=== PATIENT | male | born 1945 | race American Indian/Alaskan Native ===

== ENCOUNTER 2016-08-09 12:46 | Emergency (ER) | payer MEDICARE ==
[2016-08-09 13:19] LABS: Basophils % (Auto) 0.6 % (0.0-1.8); Eosinophils % (Auto) 5.4 % (0.0-4.3); Hematocrit 38.7 % (35.5-45.6); Hemoglobin 12.8 gm/dl (11.8-15.2); Mean Corpuscular HGB Conc 33 % (32-34); Mean Corpuscular Hemoglobin 27 pg (28-32); Mean Corpuscular Volume 82 fl (84-94); Platelet Count 235 K/mm3 (140-440); Red Blood Count 4.73 M/mm3 (3.65-5.03); Red Cell Distribution Width 15.5 % (13.2-15.2); White Blood Count 5.5 K/mm3 (4.5-11.0)
[2016-08-09 13:39] LABS: Anion Gap 22 mmol/L; BUN/Creatinine Ratio 13.33; Blood Urea Nitrogen 12 mg/dL (9-20); Calcium 9.6 mg/dL (8.4-10.2); Carbon Dioxide 22 mmol/L (22-30); Chloride 101.3 mmol/L (98-107); Glucose 159 mg/dL (75-100); Potassium 4.2 mmol/L (3.6-5.0); Sodium 141 mmol/L (137-145)
[2016-08-09] MEDS ORDERED: NACL 0.9% IR ONE (18:03)
--- NOTE | 2016-08-09 18:04 | Emergency Department Report ---
ED Male HPI - General Chief complaint: Urogenital-Male Stated complaint: PENILE BLEEDING Time Seen by Provider: 08/09/16 18:02 Source: patient, RN notes reviewed Mode of arrival: Ambulatory Limitations: No Limitations - History of Present Illness Initial comments: This is a 70-year-old male. He is previously unknown to me. His primary care doctor is Dr. Agapito Joe. His urologist is Dr. Juarez with [facility]. Past medical history includes GERD, hypertension, possible prostate cancer (the patient is not certain). the patient thinks he had a transurethral retrograde prostatectomy, but is not certain. The patient presents to the ER today with hematuria, and inability to urinate. He woke up with these symptoms. They are constant. They were relieved with placement of Gomes catheter. Currently, patient denies headache, neck pain, chest pain, abdominal pain or shortness of breath. He denies dysuria, and pain with urination. There is no testicular pain. MD Complaint: other (hematuria, urinary obstruction) -: Gradual Consistency: now resolved Improves with: other (gomes catheter placement) urinary retention, blood in urine. denies: discharge, swelling, mass, rash, fever, nausea/vomiting, incontinence - Related Data Home Medications Medication Instructions Recorded Confirmed Last Taken Omeprazole Magnesium [PriLOSEC Otc] 20 mg PO QDAY 08/09/16 08/09/16 Unknown diphenhydrAMINE [Benadryl CAP] 25 mg PO QHS PRN 08/09/16 08/09/16 Unknown Previous Rx's Medication Instructions Recorded Last Taken Type Nitrofurantoin [place]/M-Cryst 100 mg PO Q12HR #14 capsule 08/09/16 Unknown Rx [Macrobid CAP] Allergies Allergy/AdvReac Type Severity Reaction Status Date / Time Penicillins AdvReac Hives Verified 08/09/16 12:50 ED Review of Systems ROS: Stated complaint: PENILE BLEEDING Other details as noted in HPI Constitutional: denies: fever Eyes: denies: eye discharge ENT: denies: epistaxis Respiratory: denies: cough Cardiovascular: denies: chest pain Gastrointestinal: abdominal pain (now resolved) Genitourinary: hematuria. denies: testicular pain Musculoskeletal: as per HPI Skin: as per HPI Neurological: as per HPI Psychiatric: as per HPI ED Past Medical Hx - Past Medical History Hx Hypertension: Yes Hx GERD: Yes - Surgical History Past Surgical History?: Yes Additional Surgical History: Prostate 2007 - Medications Home Medications: Home Medications Medication Instructions Recorded Confirmed Last Taken Type Nitrofurantoin [place]/M-Cryst 100 mg PO Q12HR #14 capsule 08/09/16 Unknown Rx [Macrobid CAP] Omeprazole Magnesium [PriLOSEC Otc] 20 mg PO QDAY 08/09/16 08/09/16 Unknown History diphenhydrAMINE [Benadryl CAP] 25 mg PO QHS PRN 08/09/16 08/09/16 Unknown History ED Physical Exam - General Limitations: No Limitations General appearance: alert, in no apparent distress - Head Head exam: Present: atraumatic, normocephalic - Eye Eye exam: Present: normal appearance, EOMI. Absent: nystagmus - ENT ENT exam: Present: normal exam, normal orophraynx, mucous membranes moist, normal external ear exam - Neck Neck exam: Present: normal inspection, full ROM. Absent: tenderness, meningismus - Respiratory Respiratory exam: Present: normal lung sounds bilaterally. Absent: respiratory distress, wheezes, rales, rhonchi, stridor, chest wall tenderness, accessory muscle use, decreased breath sounds, prolonged expiratory - Cardiovascular Cardiovascular Exam: Present: regular rate, normal rhythm, normal heart sounds. Absent: bradycardia, tachycardia, irregular rhythm, systolic murmur, diastolic murmur, rubs, gallop - GI/Abdominal GI/Abdominal exam: Present: soft, normal bowel sounds. Absent: distended, tenderness, guarding, rebound, rigid - Rectal Rectal exam: Present: deferred - exam: Present: normal inspection External exam: Present: normal external exam, other (there is a Gomes catheter in place draining clear/bloody urine. There is no testicular tenderness.) - Extremities Exam Extremities exam: Present: normal inspection, full ROM, normal capillary refill. Absent: tenderness, pedal edema, joint swelling, calf tenderness - Back Exam Back exam: Present: normal inspection, full ROM. Absent: tenderness, CVA tenderness (R), CVA tenderness (L), muscle spasm, paraspinal tenderness, vertebral tenderness - Neurological Exam Neurological exam: Present: alert, oriented X3, other (Extraocular movements intact. Tongue midline. No facial droop. Facial sensation intact to light touch in the V1, V2, V3 distribution bilaterally. 5 and 5 strength in 4 extremities.. Sensation is intact to light touch in 4 extremities.). Absent: motor sensory deficit - Psychiatric Psychiatric exam: Present: normal affect, normal mood - Skin Skin exam: Present: warm, dry, intact, normal color. Absent: rash ED Course Vital Signs 08/09/16 08/09/16 08/09/16 12:50 18:21 18:22 Temperature 98.1 F 99.3 F Pulse Rate 98 H Respiratory 16 18 18 Rate Blood Pressure 158/85 Blood Pressure 158/85 165/81 [Left] O2 Sat by Pulse 100 100 Oximetry 08/09/16 22:08 Temperature 98.3 F Pulse Rate 97 H Respiratory 15 Rate Blood Pressure Blood Pressure 161/98 [Left] O2 Sat by Pulse 99 Oximetry - Reevaluation(s) Reevaluation #1: 08/09/16 19:58 differential diagnosis: Genitourinary malignancy, obstructive uropathy, urinary tract infection Assessment and plan: 70-year-old male with obstructive uropathy, now resolved. He is afebrile with reassuring vital signs, with the exception of slightly elevated blood pressure. He does not have any irritative urinary symptoms, his urinalysis is not consistent with a urinary tract infection, his laboratory studies are essentially unremarkable. The bladder was irrigated with sterile saline, which improved the clarity of the urine. The patient will be changed to a leg bag, and he will be discharged with instructions to follow up with outpatient urology within the next week for trial void. This was explained extensively to both the patient and family who verbalized understanding. Patient will be discharged at this time. Return precautions are reviewed. ED Medical Decision Making - Lab Data Result diagrams: 08/09/16 13:00 08/09/16 13:00 Vital Signs 08/09/16 08/09/16 08/09/16 12:50 18:21 18:22 Temperature 98.1 F 99.3 F Pulse Rate 98 H Respiratory 16 18 18 Rate Blood Pressure 158/85 Blood Pressure 158/85 165/81 [Left] O2 Sat by Pulse 100 100 Oximetry Lab Results 08/09/16 08/09/16 08/09/16 Range/Units 13:00 13:00 13:00 WBC 5.5 (4.5-11.0) K/mm3 RBC 4.73 (3.65-5.03) M/mm3 Hgb 12.8 (11.8-15.2) gm/dl Hct 38.7 (35.5-45.6) % MCV 82 L (84-94) fl MCH 27 L (28-32) pg MCHC 33 (32-34) % RDW 15.5 H (13.2-15.2) % Plt Count 235 (140-440) K/mm3 Lymph % (Auto) 20.5 (13.4-35.0) % [place] % (Auto) 9.3 H (0.0-7.3) % Eos % (Auto) 5.4 H (0.0-4.3) % Baso % (Auto) 0.6 (0.0-1.8) % Lymph # 1.1 L (1.2-5.4) K/mm3 [place] # 0.5 (0.0-0.8) K/mm3 Eos # 0.3 (0.0-0.4) K/mm3 Baso # 0.0 (0.0-0.1) K/mm3 Seg Neutrophils % 64.2 (40.0-70.0) % Seg Neutrophils # 3.5 (1.8-7.7) K/mm3 Sodium 141 (137-145) mmol/L Potassium 4.2 (3.6-5.0) mmol/L Chloride 101.3 (98-107) mmol/L Carbon Dioxide 22 (22-30) mmol/L Anion Gap 22 mmol/L BUN 12 (9-20) mg/dL Creatinine 0.9 (0.8-1.5) mg/dL Estimated GFR > 60 ml/min BUN/Creatinine Ratio 13.33 % Glucose 159 H (75-100) mg/dL Calcium 9.6 (8.4-10.2) mg/dL Total Creatine Kinase 105 (55-170) units/L Urine Color (Yellow) Urine Turbidity (Clear) Urine pH (5.0-7.0) Ur Specific [place] (1.003-1.030) Urine Protein (Negative) mg/dL Urine Glucose (UA) (Negative) mg/dL Urine Ketones (Negative) mg/dL Urine Blood (Negative) Urine Nitrite (Negative) Urine Bilirubin (Negative) Urine Urobilinogen (<2.0) mg/dL Ur Leukocyte Esterase (Negative) Urine WBC (Auto) (0.0-6.0) /HPF Urine RBC (Auto) (0.0-6.0) /HPF Urine Mucus /HPF Urine Yeast (Budding) /HPF 08/09/16 Range/Units 17:59 WBC (4.5-11.0) K/mm3 RBC (3.65-5.03) M/mm3 Hgb (11.8-15.2) gm/dl Hct (35.5-45.6) % MCV (84-94) fl MCH (28-32) pg MCHC (32-34) % RDW (13.2-15.2) % Plt Count (140-440) K/mm3 Lymph % (Auto) (13.4-35.0) % [place] % (Auto) (0.0-7.3) % Eos % (Auto) (0.0-4.3) % Baso % (Auto) (0.0-1.8) % Lymph # (1.2-5.4) K/mm3 [place] # (0.0-0.8) K/mm3 Eos # (0.0-0.4) K/mm3 Baso # (0.0-0.1) K/mm3 Seg Neutrophils % (40.0-70.0) % Seg Neutrophils # (1.8-7.7) K/mm3 Sodium (137-145) mmol/L Potassium (3.6-5.0) mmol/L Chloride (98-107) mmol/L Carbon Dioxide (22-30) mmol/L Anion Gap mmol/L BUN (9-20) mg/dL Creatinine (0.8-1.5) mg/dL Estimated GFR ml/min BUN/Creatinine Ratio % Glucose (75-100) mg/dL Calcium (8.4-10.2) mg/dL Total Creatine Kinase (55-170) units/L Urine Color Red (Yellow) Urine Turbidity Cloudy (Clear) Urine pH 6.0 (5.0-7.0) Ur Specific [place] 1.010 (1.003-1.030) Urine Protein 100 mg/dl (Negative) mg/dL Urine Glucose (UA) 50 (Negative) mg/dL Urine Ketones Neg (Negative) mg/dL Urine Blood Mod (Negative) Urine Nitrite Neg (Negative) Urine Bilirubin Neg (Negative) Urine Urobilinogen < 2.0 (<2.0) mg/dL Ur Leukocyte Esterase Neg (Negative) Urine WBC (Auto) 2.0 (0.0-6.0) /HPF Urine RBC (Auto) > 182.0 (0.0-6.0) /HPF Urine Mucus 3+ /HPF Urine Yeast (Budding) 2+ /HPF Critical care attestation.: If time is entered above; I have spent that time in minutes in the direct care of this critically ill patient, excluding procedure time. ED Disposition Clinical Impression: Obstructive uropathy Disposition: DISCHARGED TO HOME OR SELFCARE Is pt being admited?: No Does the pt Need Aspirin: No Condition: Stable Instructions: Urinary Retention in Men (ED) Additional Instructions: Keep the Gomes catheter in place. Follow up with outpatient urology within the next 5-7 days for outpatient trial of void. Dr. Jackson is a local urology specialist. Cultures were sent today, results will be available in the next 3-5 days. Have your primary care doctor or urology specialist contact the medical records department to obtain culture results. Do not take the antibiotic therapy unless culture results come back positive, or if he develops symptoms of urinary tract infection, including fever, pain, discharge. Blood pressure was slightly elevated, this should be followed up by her primary care doctor within the next month. Long-term complications of hypertension/ elevated blood pressure includes stroke, heart attack, disability, , paralysis, loss of quality of life. Return to the ER right away with fevers or chills, chest pain, shortness of breath, confusion, change in mental status, projectile vomiting, inability to tolerate liquid feeds. Prescriptions: Nitrofurantoin [place]/M-Cryst [Macrobid CAP] 100 mg PO Q12HR #14 capsule Referrals: LANA STALEY MD [Primary Care Provider] - 3-5 Days YARELY JACKSON MD [Staff Physician] - 3-5 Days
[2016-08-09 18:21] LABS: Bilirubin,Urine NEG (Negative); Blood,Urine MOD (Negative); Ketones,Urine NEG (Negative); Leukocyte Esterase,Urine NEG (Negative); Mucus,Urine 3+ /HPF; Nitrite,Urine NEG (Negative); Urobilinogen,Urine < 2.0 mg/dL (<2.0)
[2016-08-09 18:24] LABS: RBC,Urine > 182.0 /HPF (0.0-6.0)
[2016-08-09 22:09] VITALS: BP 161/98
== END 2016-08-09 22:10 | disposition home or self-care (01) ==
LOC: ED 12:46
DX: N13.9 Obstructive and reflux uropathy, unspecified (principal); I10 Essential (primary) hypertension; K21.9 Gastro-esophageal reflux disease without esophagitis; Z88.0 Allergy status to penicillin
CPT/HCPCS: 36415; 51702; 80048; 81001; 82550; 85025; 87086

== ENCOUNTER 2016-08-13 18:40 | Emergency (ER) | payer MEDICARE ==
[2016-08-13 20:09] LABS: Bacteria,Urine 1+ /HPF (Negative); Bilirubin,Urine NEG (Negative); Blood,Urine LG (Negative); Ketones,Urine NEG (Negative); Leukocyte Esterase,Urine SM (Negative); Nitrite,Urine NEG (Negative); Urobilinogen,Urine < 2.0 mg/dL (<2.0)
[2016-08-14] MEDS ORDERED: NACL 0.9% ONE (00:30)
[2016-08-14] MEDS ORDERED: NACL 0.9% 500 ML IR ONE (00:40)
[2016-08-14] MEDS ORDERED: NACL 0.9% IR ONE (00:42)
--- NOTE | 2016-08-14 00:43 | Emergency Department Report ---
ED Male HPI - General Chief complaint: Tube Replacement Stated complaint: CATHETER NOT DRAINING Time Seen by Provider: 08/14/16 00:35 Source: patient Mode of arrival: Ambulatory Limitations: No Limitations - History of Present Illness Initial comments: 70-year-old male with a history of BPH with recent procedure (TURP?) With acute urinary retention afterwards with catheter placed here several days ago presenting today because he feels like his catheter is not draining well. He is worried that the catheter is obstructed with a clot as sometimes he has blood in the urine. He is scheduled to see his urologist on Saturday. Denies any dysuria, pain in the lower abdomen, fever. - Related Data Home Medications Medication Instructions Recorded Confirmed Last Taken Omeprazole Magnesium [PriLOSEC Otc] 20 mg PO QDAY 08/09/16 08/09/16 Unknown diphenhydrAMINE [Benadryl CAP] 25 mg PO QHS PRN 08/09/16 08/09/16 Unknown Previous Rx's Medication Instructions Recorded Last Taken Type Nitrofurantoin [place]/M-Cryst 100 mg PO Q12HR #14 capsule 08/09/16 Unknown Rx [Macrobid CAP] Tamsulosin [Flomax] 0.4 mg PO QDAY #7 cap 08/14/16 Unknown Rx Allergies Allergy/AdvReac Type Severity Reaction Status Date / Time Penicillins AdvReac Hives Verified 08/09/16 12:50 ED Review of Systems ROS: Stated complaint: CATHETER NOT DRAINING Other details as noted in HPI Comment: All other systems reviewed and negative Constitutional: denies: chills, fever ENT: denies: ear pain Respiratory: denies: cough Cardiovascular: denies: chest pain Gastrointestinal: denies: abdominal pain, vomiting Genitourinary: denies: discharge Skin: denies: rash Psychiatric: denies: anxiety ED Past Medical Hx - Past Medical History Previous Medical History?: Yes Hx Hypertension: Yes Hx GERD: Yes - Surgical History Past Surgical History?: Yes Additional Surgical History: Prostate 2006 - Social History Smoking Status: Never Smoker - Medications Home Medications: Home Medications Medication Instructions Recorded Confirmed Last Taken Type Nitrofurantoin [place]/M-Cryst 100 mg PO Q12HR #14 capsule 08/09/16 Unknown Rx [Macrobid CAP] Omeprazole Magnesium [PriLOSEC Otc] 20 mg PO QDAY 08/09/16 08/09/16 Unknown History diphenhydrAMINE [Benadryl CAP] 25 mg PO QHS PRN 08/09/16 08/09/16 Unknown History Tamsulosin [Flomax] 0.4 mg PO QDAY #7 cap 08/14/16 Unknown Rx ED Physical Exam - General Limitations: No Limitations General appearance: alert, in no apparent distress - Head Head exam: Present: atraumatic - Neck Neck exam: Present: normal inspection - Respiratory Respiratory exam: Absent: respiratory distress - Cardiovascular Cardiovascular Exam: Present: regular rate, normal rhythm - GI/Abdominal GI/Abdominal exam: Present: soft. Absent: distended, tenderness - Neurological Exam Neurological exam: Present: alert, oriented X3. Absent: motor sensory deficit - Psychiatric Psychiatric exam: Present: normal affect - Skin Skin exam: Present: intact ED Course Vital Signs 08/13/16 08/14/16 08/14/16 18:57 00:23 03:33 Temperature 99.3 F Pulse Rate 99 H 88 89 Respiratory 18 20 18 Rate Blood Pressure 186/96 Blood Pressure 172/75 182/85 [Left] O2 Sat by Pulse 99 98 99 Oximetry - Reevaluation(s) Reevaluation #1: 08/14/16 04:47 Replaced urinary catheter flowing well. Stable for discharge. ED Medical Decision Making - Medical Decision Making ua shows some blood and bacteria but with indwelling gomes this doesnt necessarily indicate UTI will irrigate to try to restore flow of urine unable to get persistent flow with irrigation, will replace with 3 way gomes for irrigation initially 3 way irrigation was unsuccessful, discussed possible suprapubic catheter Attempted straight catheterization with success Critical care attestation.: If time is entered above; I have spent that time in minutes in the direct care of this critically ill patient, excluding procedure time. ED Disposition Clinical Impression: Acute urinary obstruction Disposition: DISCHARGED TO HOME OR SELFCARE Is pt being admited?: No Does the pt Need Aspirin: No Condition: Stable Additional Instructions: Please follow up at your urology appointment on Saturday and follow up with your primary care physician in the next 3-5 days. Return to the ER if your symptoms worsen or you develop new symptoms especially fevers/chills or inability to urinate. Prescriptions: Tamsulosin [Flomax] 0.4 mg PO QDAY #7 cap Referrals: PRIMARY CARE, [Primary Care Provider] - 3-5 Days
[2016-08-14] MEDS ORDERED: LIDOCAINE VISCOUS 2% ONE (01:52)
[2016-08-14] MEDS ORDERED: LIDOCAINE VISCOUS 2% PO ONE (01:56)
[2016-08-14] MEDS ORDERED: MORPHINE IV ONE (01:57)
[2016-08-14 03:34] VITALS: BP 182/85
[2016-08-14] MEDS ORDERED: FLOMAX PO ONE (04:00)
== END 2016-08-14 05:33 | disposition home or self-care (01) ==
LOC: ED 18:40
DX: N13.8 Other obstructive and reflux uropathy (principal); I10 Essential (primary) hypertension; K21.9 Gastro-esophageal reflux disease without esophagitis; N40.0 Benign prostatic hyperplasia without lower urinary tract symptoms; Z88.0 Allergy status to penicillin
CPT/HCPCS: 51702; 81001; 87086; 96374; 99283; A4217; J2270